=== PATIENT | female | born 1965 | race Caucasian/White ===

== ENCOUNTER 2017-12-08 10:07 | Emergency (ER) | payer OTHER ==
[~2017-12-08] VITALS: Ht 167.6 cm; Wt 98.3 kg
[2017-12-08 11:05] LABS: BASOPHILS # (AUTO) 0.02 x10^3/uL (0-0.1); BASOPHILS % (AUTO) 0 % (0-1); EOSINOPHILS # (AUTO) 0.03 x10^3/uL (0-0.4); EOSINOPHILS % (AUTO) 0 % (1-7); LYMPHOCYTES # (AUTO) 2.27 x10^3/uL (1-3.4); LYMPHOCYTES % (AUTO) 25 % (22-44); MD NO; MEAN CORPUSCULAR HEMOGLOBIN 29.3 pg (27.0-34.8); MEAN CORPUSCULAR HGB CONC 33.5 g/dL (32.4-35.8); MEAN CORPUSCULAR VOLUME 87.4 fL (80-100); MEAN PLATELET VOLUME 9.3 fL (7.4-10.4); MONOCYTES # (AUTO) 0.38 x10^3/uL (0.2-0.8); MONOCYTES % (AUTO) 4 % (2-9); NEUTROPHILS # (AUTO) 6.28 x10^3/uL (1.8-6.8); NEUTROPHILS % (AUTO) 70 % (42-75); PLATELET COUNT 174 x10^3/uL (130-400); RED BLOOD COUNT 5.27 x10^6/uL (3.82-5.3); RED CELL DISTRIBUTION WIDTH 12.6 % (9.6-15.2)
[2017-12-08 11:14] LABS: INTERNATIONAL NORMALIZED RATIO 0.97 (0.93-1.1)
[2017-12-08 11:17] LABS: ALANINE AMINOTRANSFERASE 21 U/L (12-78); ALBUMIN 3.7 g/dL (3.4-5.0); ANION GAP 6 mmol/L (5-15); CALCIUM 8.6 mg/dL (8.5-10.1); CHLORIDE 105 mmol/L (98-107); CREATININE 0.78 mg/dL (0.55-1.02)
[2017-12-08 11:20] LABS: ALKALINE PHOSPHATASE 105 U/L (45-117); BILIRUBIN,TOTAL 0.5 mg/dL (0.2-1.0); TOTAL PROTEIN 8.1 g/dL (6.4-8.2)
[2017-12-08 12:38] VITALS: BP 132/81
== END 2017-12-08 12:42 | disposition home or self-care (01) ==
LOC: ED 12:25
DX: N93.9 Abnormal uterine and vaginal bleeding, unspecified (principal)
CPT/HCPCS: 36415; 80053; 85025; 85610; 85730; 99284

== ENCOUNTER 2017-12-19 13:57 | Inpatient (IN) | payer OTHER ==
[~2017-12-19] VITALS: Ht 168.9 cm; Wt 99.9 kg
[2017-12-19] MEDS ORDERED: SODIUM CHLORIDE FLUSH 10ML SYR IVF ONE (14:30)
[2017-12-19 14:44] LABS: BASOPHILS # (AUTO) 0.04 x10^3/uL (0-0.1); BASOPHILS % (AUTO) 0 % (0-1); EOSINOPHILS # (AUTO) 0.06 x10^3/uL (0-0.4); EOSINOPHILS % (AUTO) 1 % (1-7); LYMPHOCYTES # (AUTO) 2.37 x10^3/uL (1-3.4); LYMPHOCYTES % (AUTO) 20 % (22-44); MD NO; MEAN CORPUSCULAR HEMOGLOBIN 29.5 pg (27.0-34.8); MEAN CORPUSCULAR HGB CONC 33.7 g/dL (32.4-35.8); MEAN CORPUSCULAR VOLUME 87.4 fL (80-100); MEAN PLATELET VOLUME 9.8 fL (7.4-10.4); MONOCYTES # (AUTO) 0.55 x10^3/uL (0.2-0.8); MONOCYTES % (AUTO) 5 % (2-9); NEUTROPHILS # (AUTO) 8.57 x10^3/uL (1.8-6.8); NEUTROPHILS % (AUTO) 74 % (42-75); PLATELET COUNT 216 x10^3/uL (130-400); RED BLOOD COUNT 5.22 x10^6/uL (3.82-5.3); RED CELL DISTRIBUTION WIDTH 12.7 % (9.6-15.2)
[2017-12-19 14:49] LABS: INTERNATIONAL NORMALIZED RATIO 0.98 (0.93-1.1); PROTHROMBIN TIME 10.1 Seconds (9.6-11.5)
[2017-12-19 14:50] LABS: ALANINE AMINOTRANSFERASE 22 U/L (12-78); ALBUMIN 3.9 g/dL (3.4-5.0); ANION GAP 9 mmol/L (5-15); CHLORIDE 104 mmol/L (98-107); CREATININE 0.67 mg/dL (0.55-1.02)
[2017-12-19 14:53] LABS: ALKALINE PHOSPHATASE 97 U/L (45-117); BILIRUBIN,TOTAL 0.5 mg/dL (0.2-1.0); TOTAL PROTEIN 8.2 g/dL (6.4-8.2)
[2017-12-19] MEDS ORDERED: OXYTOCIN 10 UNITS/ML, 1ML ONE (17:14)
[2017-12-19] MEDS ORDERED: BUPIVACAINE/PF 0.5% ONE (17:14)
[2017-12-19] MEDS ORDERED: FENTANYL PF 250 MCG/5ML ONE (17:17)
[2017-12-19] MEDS ORDERED: MIDAZOLAM 1 MG/ML, 2ML ONE (17:17)
[2017-12-19] MEDS ORDERED: PROPOFOL 10 MG/ML, 20ML ONE (17:18)
[2017-12-19] MEDS ORDERED: CEFAZOLIN 1,000 MG ONE ×2 (17:19)
[2017-12-19] MEDS ORDERED: SODIUM CHLORIDE 0.9% PF 10ML ONE (17:19)
[2017-12-19] MEDS ORDERED: FENTANYL PF 100 MCG/2ML IV PRN (17:30)
[2017-12-19] MEDS ORDERED: MEPERIDINE/PF 25MG/0.5ML IVPush PRN (17:30)
[2017-12-19] MEDS ORDERED: PROMETHAZINE 25 MG/ML, 1ML IM PRN ×2 (17:30)
[2017-12-19] MEDS ORDERED: PROMETHAZINE 25 MG/ML, 1ML IV PRN (17:30)
[2017-12-19] MEDS ORDERED: hydrALAzine 20 MG/ML, 1ML IV PRN (17:30)
[2017-12-19] MEDS ORDERED: KETOROLAC 30 MG/1 ML ONE (17:30)
[2017-12-19] MEDS ORDERED: LABETALOL 5MG/ML, 20ML IV PRN (17:30)
[2017-12-19] MEDS ORDERED: ONDANSETRON 2MG/ML, 2ML IV PRN (17:30)
[2017-12-19] MEDS ORDERED: MORPHINE SULFATE 4 MG/ML, 1ML IVPush PRN ×2 (17:30→20:30)
[2017-12-19] MEDS ORDERED: HYDROmorphone 1 MG/ML, 1ML IV PRN (17:30)
[2017-12-19] MEDS ORDERED: ONDANSETRON ODT 8 MG PO PRN (17:30)
[2017-12-19] MEDS ORDERED: DEXAMETHASONE 4 MG/ML, 1ML ONE ×2 (17:39)
[2017-12-19] MEDS ORDERED: ONDANSETRON 2MG/ML, 2ML ONE ×2 (17:39)
[2017-12-19 20:13] VITALS: BP 109/59
[2017-12-19] MEDS ORDERED: KETOROLAC 30 MG/1 ML IV PRN (20:30)
[2017-12-19] MEDS ORDERED: HYDROcodone/APAP 5/325 TABLET PO PRN (20:30)
[2017-12-19] MEDS ORDERED: ONDANSETRON 2MG/ML, 2ML IVPush PRN (20:30)
[2017-12-19] MEDS: LACTATED RINGERS 1,000 ML IV SCH (22:52)
[2017-12-20 00:02] VITALS: BP_SYST 101; BP_SYST 109; BP_DIAS 59; BP_DIAS 64
[2017-12-20] MEDS: LACTATED RINGERS 1,000 ML IV SCH (04:45)
[2017-12-20 04:46] VITALS: BP 89/57
[2017-12-20 04:51] VITALS: BP 95/60
[2017-12-20 09:00] VITALS: BP 106/67
== END 2017-12-20 10:38 | disposition home or self-care (01) | DRG 745 ==
LOC: OR 15:48 → EDIP 15:49 → OR 15:55 → 4NOR 19:57 → DCLOUNGE 12-20 10:18
PROVIDERS: ADMIT Obstetrics & Gynecology; ATTEND Obstetrics & Gynecology
PROC: 0UDB8ZZ Extraction of Endometrium, Via Natural or Artificial Opening Endoscopic (ICD-10-PCS; principal; 2017-12-19 17:00)
DX: N84.1 Polyp of cervix uteri (principal); N93.8 Other specified abnormal uterine and vaginal bleeding; E11.9 Type 2 diabetes mellitus without complications
CPT/HCPCS: 36415; 76830; 80053; 82962; 85025; 85610; 85730; 86850; 86900; 88305; 99285; G0378; J0690; J1100; J1885; J2250; J2405; J2704; J3010; J3490; J2590; J7120

== ENCOUNTER 2018-01-10 20:55 | Emergency (ER) | payer OTHER ==
[~2018-01-10] VITALS: Ht 170.2 cm; Wt 96.4 kg
[2018-01-10] MEDS ORDERED: vitamin c (21:31)
[2018-01-10] MEDS ORDERED: iodine (21:31)
[2018-01-10] MEDS ORDERED: ONDANSETRON 2MG/ML, 2ML ONE (21:52)
[2018-01-10] MEDS ORDERED: FENTANYL PF 100 MCG/2ML ONE (21:53)
[2018-01-10] MEDS ORDERED: ONDANSETRON 2MG/ML, 2ML IVPush ONE (22:00)
[2018-01-10] MEDS ORDERED: FENTANYL PF 100 MCG/2ML IVPush PRN (22:00)
[2018-01-10 22:06] LABS: BASOPHILS # (AUTO) 0.05 x10^3/uL (0-0.1); BASOPHILS % (AUTO) 1 % (0-1); EOSINOPHILS # (AUTO) 0.05 x10^3/uL (0-0.4); EOSINOPHILS % (AUTO) 1 % (1-7); LYMPHOCYTES # (AUTO) 3.04 x10^3/uL (1-3.4); LYMPHOCYTES % (AUTO) 30 % (22-44); MD NO; MEAN CORPUSCULAR HEMOGLOBIN 29.2 pg (27.0-34.8); MEAN CORPUSCULAR HGB CONC 33.6 g/dL (32.4-35.8); MEAN CORPUSCULAR VOLUME 86.9 fL (80-100); MEAN PLATELET VOLUME 9.6 fL (7.4-10.4); MONOCYTES # (AUTO) 0.58 x10^3/uL (0.2-0.8); MONOCYTES % (AUTO) 6 % (2-9); NEUTROPHILS # (AUTO) 6.33 x10^3/uL (1.8-6.8); NEUTROPHILS % (AUTO) 63 % (42-75); PLATELET COUNT 194 x10^3/uL (130-400); RED BLOOD COUNT 4.94 x10^6/uL (3.82-5.3)
[2018-01-10 22:18] LABS: ALBUMIN 3.7 g/dL (3.4-5.0); ANION GAP 9 mmol/L (5-15); CALCIUM 8.6 mg/dL (8.5-10.1); CHLORIDE 104 mmol/L (98-107); CREATININE 0.74 mg/dL (0.55-1.02)
[2018-01-10 23:00] VITALS: BP 124/67
== END 2018-01-11 00:14 | disposition home or self-care (01) ==
LOC: ED 21:49
DX: N92.4 Excessive bleeding in the premenopausal period (principal); E11.9 Type 2 diabetes mellitus without complications; J45.909 Unspecified asthma, uncomplicated
CPT/HCPCS: 36415; 80048; 82040; 84703; 85025; 86850; 86900; 99284